=== PATIENT | female | born 1955 | race Caucasian/White ===

== ENCOUNTER 2017-02-15 08:43 | Emergency (ER) | payer MEDICARE, BC, MEDICAID ==
[2017-02-15 08:55] VITALS: BP 136/71
--- NOTE | 2017-02-15 09:00 | ED Physician Documentation ---
PD HPI HEENT - Stated complaint Stated Complaint: LEFT EYE SWOLLEN - Chief complaint Chief Complaint: Heent - History obtained from History obtained from: Patient - History of Present Illness Timing - onset: Last night (some itching and swelling on forehead and it is increased today, with left eyelid swelling as well. No vision change. no fever.) Timing - details: Abrupt onset Location: Other (forehead and left eyelids.) Associated symptoms: Facial swelling (which is itchy.). No: Fever, Congestion, Rhinorrhea, Swollen nodes Similar symptoms before: Has not had sx before Recently seen: Not recently seen Review of Systems Constitutional: denies: Fever, Chills Eyes: denies: Loss of vision, Decreased vision, Photophobia Nose: denies: Rhinorrhea / runny nose, Congestion Throat: denies: Sore throat Respiratory: denies: Cough PD PAST MEDICAL HISTORY - Past Medical History Endocrine/Autoimmune: None HEENT: None - Present Medications Home Medications: Ambulatory Orders Medication Instructions Recorded Confirmed Dexamethasone [Decadron] 4 mg PO DAILY #5 tablet 02/15/17 - Allergies Allergies/Adverse Reactions: Allergies Allergy/AdvReac Type Severity Reaction Status Date / Time No Known Drug Allergies Allergy Verified 02/15/17 08:55 PD ED PE NORMAL - Vitals Vital signs reviewed: Yes - General General: Alert and oriented X 3, No acute distress, Well developed/nourished - HEENT HEENT: PERRL, EOMI, Ears normal, Moist mucous membranes, Pharynx benign, Other ( mid forehead and left upper/lower eyelids with swelling, faint red, itchy without skin sores/vesicles. ) - Neck Neck: Supple, no meningeal sign, No adenopathy - Cardiac Cardiac: RRR, No murmur - Respiratory Respiratory: Clear bilaterally - Derm Derm: Normal color, Warm and dry Results - Vitals Vitals: Oxygen O2 Source Room air PD MEDICAL DECISION MAKING - ED course Complexity details: considered differential (looks like local reaction. Does not have cellulitic look. No pain with ROM of the eye and has normal vision, so not having pressure in orbital area. ), d/w patient Departure - Departure Disposition: 01 Home, Self Care Clinical Impression: Allergic reaction Qualifiers: Encounter type: initial encounter Qualified Code(s): T78.40XA - Allergy, unspecified, initial encounter Condition: Stable Record reviewed to determine appropriate education?: Yes Instructions: ED Allergic Reaction Local Other Prescriptions: Dexamethasone [Decadron] 4 mg PO DAILY #5 tablet Comments: This looks to be allergic reaction and not an infection. Use Benadryl every 6 hours as needed for itchiness. Cool towels to the area. Steroid orally and/or topically until improved. Orally can be once daily if needed to continue it. Topically would be twice daily. Recheck if not improved over the next day or 2. Recheck if you have other symptoms develop such as oral swelling, trouble breathing, fever, nausea vomiting, other concerns. I wrote a prescription for some oral steroids to use only if this persists beyond a day or so. Discharge Date/Time: 02/15/17 09:33
[2017-02-15] MEDS ORDERED: DEXAMETHASONE 10 MG/ML VIAL PO STA (09:22)
[2017-02-15] MEDS ORDERED: DEXAMETHASONE 10 MG/ML VIAL ONE (09:33)
[2017-02-15] MEDS ORDERED: CHERRY SYRUP 10 ML UDC PO ONE (09:34)
== END 2017-02-15 09:33 | disposition home or self-care (01) ==
LOC: ED 08:43
DX: T78.40XA Allergy, unspecified, initial encounter (principal); X58.XXXA Exposure to other specified factors, initial encounter
CPT/HCPCS: 99283; A9270

== ENCOUNTER 2017-11-16 11:44 | Outpatient (CLI) | payer MEDICARE, MEDICAID ==
--- NOTE | 2017-11-16 12:29 | XRAY Report ---
Procedure Date: 11/16/2017 Accession Number: [id number] / [id number] Procedure: XRS - Chest 2 View X-Ray CPT Code: 62305 FULL RESULT: EXAM: CHEST RADIOGRAPHY EXAM DATE: 11/16/2017 11:57 AM. CLINICAL HISTORY: Cough. COMPARISON: None. TECHNIQUE: 2 views. FINDINGS: Lungs/Pleura: No focal opacities evident. No pleural effusion. No pneumothorax. Normal volumes. Mediastinum: Heart and mediastinal contours are unremarkable. Other: None. IMPRESSION: Normal 2-view chest radiography. RADIA
== END 2017-11-16 11:45 | disposition home or self-care (01) ==
LOC: DI.S 11:44
PROVIDERS: ATTEND Nurse Practitioner Family
DX: R05 Cough (principal)
CPT/HCPCS: 71046

== ENCOUNTER 2017-12-27 11:13 | Emergency (ER) | payer MEDICARE, MEDICAID ==
--- NOTE | 2017-12-27 12:00 | ED Physician Documentation ---
PD HPI ANIMAL BITE - Stated complaint Stated Complaint: DOG BITE L HAND - Chief complaint Chief Complaint: Wound - History obtained from History obtained from: Patient - History of Present Illness Location of injury(ies): Left hand (thumb) Details of the event: Dog, Bite, Well appearing, Provoked (She is walking her dog at a community setting and another dog came up in the 2 started fighting over some food. The patient tried to break it up and got bit in the thumb by the other dog.), Animal control notified Timing - onset: Today Timing - details: Abrupt onset, Still present Associated symptoms: No: Weakness, Numbness Similar symptoms before: Has not had sx before Recently seen: Not recently seen Review of Systems Constitutional: denies: Fever, Chills Neurologic: denies: Focal weakness, Numbness PD PAST MEDICAL HISTORY - Past Medical History Past Medical History: No Endocrine/Autoimmune: None HEENT: None - Past Surgical History Past Surgical History: No - Present Medications Home Medications: Ambulatory Orders Medication Instructions Recorded Confirmed Dexamethasone [Decadron] 4 mg PO DAILY #5 tablet 02/15/17 Amox/Clav 875/125 [Augmentin] 1 each PO BID #10 tablet 12/27/17 - Allergies Allergies/Adverse Reactions: Allergies Allergy/AdvReac Type Severity Reaction Status Date / Time No Known Drug Allergies Allergy Verified 02/15/17 08:55 - Social History Does the pt smoke?: No Smoking Status: Never smoker Does the pt drink ETOH?: No Does the pt have substance abuse?: No - Immunizations Immunizations are current?: Yes PD ED PE NORMAL - Vitals Vital signs reviewed: Yes - General General: Alert and oriented X 3, No acute distress, Well developed/nourished - Derm Derm: Normal color, Warm and dry - Extremities Extremities: Other (left thumb with 2 puncture wounds 3-4 mm each, without bleeding. No FB seen. Good ROM of the thumb. One of the lacs is at palmar tip. second one is proximal base ulnar side. Normal ROM. ) - Neuro Neuro: Alert and oriented X 3, No motor deficit, No sensory deficit, Normal speech Results - Vitals Vitals: Vital Signs - 24 hr 12/27/17 11:40 Temperature 36.5 C Heart Rate 115 H Respiratory 20 Rate Blood Pressure 157/110 H O2 Saturation 97 Oxygen O2 Source Room air PD MEDICAL DECISION MAKING - ED course Complexity details: considered differential (wounds are small and no FB nor nerve/tendon injury. Can be closed with steri strips. ), d/w patient - Sepsis Event Vital Signs: Vital Signs - 24 hr 12/27/17 11:40 Temperature 36.5 C Heart Rate 115 H Respiratory 20 Rate Blood Pressure 157/110 H O2 Saturation 97 Oxygen O2 Source Room air Departure - Departure Disposition: 01 Home, Self Care Clinical Impression: Dog bite of left thumb Qualifiers: Encounter type: initial encounter Qualified Code(s): S61.052A - Open bite of left thumb without damage to nail, initial encounter; W54.0XXA - Bitten by dog, initial encounter Condition: Stable Record reviewed to determine appropriate education?: Yes Instructions: ED Bite Animal General Prescriptions: Amox/Clav 875/125 [Augmentin] 1 each PO BID #10 tablet Comments: Use the Steri-Strips to keep the wound closed and he will a little sooner. Animal bites are little more prone to infection so common treatment would be to go some antibiotics for a few days to reduce that risk. Tylenol or ibuprofen if needed for pains. Recheck if signs of infection. He also received a tetanus booster today which will be good for 10 more years.
[2017-12-27] MEDS ORDERED: TETANUS/DIPHTHERIA/PERTUSSIS 0.5 ML SYRINGE IM ONE (12:08)
[2017-12-27] MEDS ORDERED: AMOX/CLAV 875 MG/125 MG TABLET PO STA (12:08)
[2017-12-27 12:28] VITALS: BP 148/93
== END 2017-12-27 12:26 | disposition home or self-care (01) ==
LOC: ED 11:13
DX: S61.052A Open bite of left thumb without damage to nail, initial encounter (principal); W54.0XXA Bitten by dog, initial encounter; Y93.K1 Activity, walking an animal; Y92.830 Public park as the place of occurrence of the external cause
CPT/HCPCS: 90471; 90715; 99282; 99283; A9270

== ENCOUNTER 2018-02-06 05:30 | Emergency (ER) | payer MEDICARE, MEDICAID ==
--- NOTE | 2018-02-06 06:13 | ED Physician Documentation ---
PD HPI URI - Stated complaint Stated Complaint: COUGH - Chief complaint Chief Complaint: Resp - History obtained from History obtained from: Patient - History of Present Illness Timing - onset: How many days ago (2-3 days) Associated symptoms: Chills, Sweats, Nasal congestion, Sore throat, Dry cough. No: Ear pain, Chest pain, Dyspnea, Bilateral edema, Unilateral edema Similar symptoms before: Has not had sx before Recently seen: Not recently seen - Additional information Additional information: c/o 2-3 days of cough, nonproductive despite chest congestion. also sinus congestion, chills/sweats (unknown if fever; hasn't been taking temperature at home). cough has become increasingly frequent, interfering with sleep Review of Systems Constitutional: reports: Chills, Sweats Ears: denies: Ear pain Nose: reports: Congestion Throat: reports: Sore throat Cardiac: denies: Chest pain / pressure, Palpitations, Pedal edema Respiratory: reports: Cough. denies: Dyspnea, Hemoptysis, Wheezing PD PAST MEDICAL HISTORY - Past Medical History Endocrine/Autoimmune: None HEENT: None - Past Surgical History Past Surgical History: No - Present Medications Home Medications: Ambulatory Orders Medication Instructions Recorded Confirmed Albuterol Sulfate [Proventil Hfa 1 - 2 puffs INH Q4H PRN #1 inhaler 02/06/18 Inhaler] Benzonatate 200 mg PO Q8HR PRN #20 capsule 02/06/18 guaiFENesin/CODEINE [Robitussin AC] 5 ml PO Q6H PRN #90 udc 02/06/18 predniSONE [Prednisone] 40 mg PO DAILY #8 tablet 02/06/18 - Allergies Allergies/Adverse Reactions: Allergies Allergy/AdvReac Type Severity Reaction Status Date / Time No Known Drug Allergies Allergy Verified 02/15/17 08:55 - Social History Does the pt smoke?: No Smoking Status: Never smoker Does the pt drink ETOH?: No Does the pt have substance abuse?: No - Immunizations Immunizations are current?: Yes PD ED PE NORMAL - Vitals Vital signs reviewed: Yes - General General: Alert and oriented X 3, Well developed/nourished, Other (frequent coughing during H+P) - HEENT HEENT: Moist mucous membranes, Pharynx benign - Neck Neck: Supple, no meningeal sign - Cardiac Cardiac: RRR, No murmur - Respiratory Respiratory: No respiratory distress, Other (bilateral course expiratory breath sounds) Results - Vitals Vitals: Oxygen O2 Source Room air - Rads (name of study) chest xray Radiology: Prelim report reviewed, See rad report PD MEDICAL DECISION MAKING - ED course Complexity details: reviewed results, re-evaluated patient, considered differential, d/w patient ED course: on reevaluation, patient reports improvement. there is marked improvement in coughing. lungs have improved aeration with minimal residual bilateral course expiratory breath sounds Departure - Departure Disposition: 01 Home, Self Care Clinical Impression: Bronchitis, acute, with bronchospasm Condition: Good Instructions: ED Bronchitis Asthmatic Prescriptions: Benzonatate 200 mg PO Q8HR PRN #20 capsule PRN Reason: Cough Albuterol Sulfate [Proventil Hfa Inhaler] 1 - 2 puffs INH Q4H PRN #1 inhaler PRN Reason: Shortness Of Air/Wheezing guaiFENesin/CODEINE [Robitussin AC] 5 ml PO Q6H PRN #90 udc PRN Reason: Cough predniSONE [Prednisone] 40 mg PO DAILY #8 tablet Forms: Activity restrictions Discharge Date/Time: 02/06/18 08:02
--- NOTE | 2018-02-06 06:15 | XRAY Report ---
Reason: cough Procedure Date: 02/06/2018 Accession Number: [id number] / [id number] Procedure: XR - Chest 2 View X-Ray CPT Code: 25783 FULL RESULT: EXAM: CHEST RADIOGRAPHY EXAM DATE: 02/06/2018 06:01 AM. CLINICAL HISTORY: Cough. COMPARISON: CHEST 2 VIEW 11/16/2017 12:01 PM. TECHNIQUE: 2 views. FINDINGS: Lungs/Pleura: No focal opacities evident. No pleural effusion. No pneumothorax. Normal volumes. Mediastinum: Heart and mediastinal contours are unremarkable. Other: None. IMPRESSION: Normal 2-view chest radiography. RAD[facility]
[2018-02-06] MEDS ORDERED: IPRATROPIUM/ALBUTEROL 3 ML NEB INH STA (06:36)
[2018-02-06] MEDS ORDERED: BENZONATATE 100 MG CAPSULE PO STA (06:36)
[2018-02-06 07:28] VITALS: BP 173/112
== END 2018-02-06 08:02 | disposition home or self-care (01) ==
LOC: ED 05:30
DX: J20.9 Acute bronchitis, unspecified (principal)
CPT/HCPCS: 71046; 94640; 99283; A9270

== ENCOUNTER 2018-04-04 04:00 | Emergency (ER) | payer MEDICARE, MEDICAID ==
[2018-04-04 04:08] VITALS: BP 155/83
--- NOTE | 2018-04-04 04:23 | ED Physician Documentation ---
PD HPI SKIN - Stated complaint Stated Complaint: POSS SPIDER BITE - Chief complaint Chief Complaint: Wound - History obtained from History obtained from: Patient - History of Present Illness Timing - onset: How many days ago (2-3) Timing - duration: Days (2-3) Timing - details: Gradual onset Location: Chest, Back (right scapular back area wrapping around to lateral breast. Pain and burning without noted injury. Has small red spot developing today lateral chest.) Quality / character: Itchy, Painful, Burning. No: Discolored, Swelling Associated symptoms: No: Fever, Myalgias, N/V/D Similar symptoms before: Has not had sx before Recently seen: Not recently seen Review of Systems Constitutional: denies: Fever, Chills, Myalgias Nose: denies: Rhinorrhea / runny nose, Congestion Throat: denies: Sore throat Respiratory: denies: Cough GI: denies: Abdominal Pain, Nausea, Vomiting, Diarrhea Neurologic: denies: Focal weakness, Numbness PD PAST MEDICAL HISTORY - Past Medical History Past Medical History: Yes Respiratory: None Neuro: None Endocrine/Autoimmune: None HEENT: None Other Past Medical History: Lymes disease - Past Surgical History Past Surgical History: No - Present Medications Home Medications: Ambulatory Orders Medication Instructions Recorded Confirmed Acyclovir 400 mg PO 5XD #30 tablet 04/04/18 Amitriptyline [Elavil] 25 mg PO HS #30 tablet 04/04/18 Dexamethasone [Decadron] 4 mg PO DAILY #5 tablet 04/04/18 Hydrocodone/Acetaminophen [[place] 1 each PO Q6H PRN #15 tablet 04/04/18 5-325 Tablet] Lidocaine Patch 5% [Lidoderm Patch] 1 patch TOP DAILY PRN #10 patch 04/04/18 - Allergies Allergies/Adverse Reactions: Allergies Allergy/AdvReac Type Severity Reaction Status Date / Time No Known Drug Allergies Allergy Verified 04/04/18 04:08 - Social History Does the pt smoke?: No Smoking Status: Never smoker Does the pt drink ETOH?: No Does the pt have substance abuse?: No - Immunizations Immunizations are current?: Yes - POLST Patient has POLST: No PD ED PE NORMAL - Vitals Vital signs reviewed: Yes - General General: Alert and oriented X 3, No acute distress, Well developed/nourished - HEENT HEENT: Pharynx benign - Neck Neck: Supple, no meningeal sign, No adenopathy - Cardiac Cardiac: RRR, No murmur - Respiratory Respiratory: Clear bilaterally - Abdomen Abdomen: Soft, Non tender - Back Back: No spinal TTP, Other (tender to touch and light touch right lateral scapular area at level of T4-5 and around chest to lateral breast area. One single small red bump that is tender in anterior axillary line. She is not tender just above nor below that swatch.) - Derm Derm: Warm and dry Results - Vitals Vitals: Vital Signs - 24 hr 04/04/18 04/04/18 04:06 05:09 Temperature 36.4 C L Heart Rate 107 H 101 H Respiratory 19 18 Rate Blood Pressure 155/83 H O2 Saturation 98 99 Oxygen O2 Source Room air PD MEDICAL DECISION MAKING - ED course Complexity details: considered differential (has pain and skin tenderness in dermatomal wrap-around distribution right back/lateral chest, with single red bump just starting this evening. Seems c/w shingles. ), d/w patient Departure - Departure Disposition: 01 Home, Self Care Clinical Impression: Acute chest wall pain Shingles outbreak Qualifiers: Herpes zoster complications: without complications Qualified Code(s): B02.9 - Zoster without complications Condition: Stable Record reviewed to determine appropriate education?: Yes Instructions: ED Shingles Prescriptions: Acyclovir 400 mg PO 5XD #30 tablet Amitriptyline [Elavil] 25 mg PO HS #30 tablet Dexamethasone [Decadron] 4 mg PO DAILY #5 tablet Hydrocodone/Acetaminophen [[place] 5-325 Tablet] 1 each PO Q6H PRN #15 tablet PRN Reason: Pain Lidocaine Patch 5% [Lidoderm Patch] 1 patch TOP DAILY PRN #10 patch PRN Reason: pain Comments: This sounds like a developing shingles outbreak. Forward it would treat with medication to decrease the amount of virus (antiviral acyclovir), and also to treat the nerve inflammation and irritation (Decadron steroid and amitriptyline at night). For the symptoms you can use lidocaine patches topically. Naproxen or ibuprofen 2-3 times a day and add Tylenol or hydrocodone if needed for pain. Discharge Date/Time: 04/04/18 05:10
[2018-04-04] MEDS ORDERED: HYDROcod/ACET 5/325 Prepack 4 PO STA (04:39)
[2018-04-04] MEDS ORDERED: ACYCLOVIR 200 MG CAPSULE PO STA (04:39)
[2018-04-04] MEDS ORDERED: DEXAMETHASONE 10 MG/ML VIAL PO STA (04:39)
[2018-04-04] MEDS ORDERED: LIDOCAINE PATCH 5% TOP STA (04:39)
== END 2018-04-04 05:10 | disposition home or self-care (01) ==
LOC: ED 04:00
DX: B02.9 Zoster without complications (principal); R07.89 Other chest pain
CPT/HCPCS: 99283; A9270

== ENCOUNTER 2018-11-10 07:45 | Outpatient (CLI) | payer MEDICARE, MEDICAID ==
--- NOTE | 2018-11-11 10:47 | XRAY Report ---
Reason: MYALGIAS, M79.120,R53.83,R06.09 Procedure Date: 11/10/2018 Accession Number: [id number] / [id number] Procedure: XRS - Chest 2 View X-Ray CPT Code: 61270 FULL RESULT: EXAM: CHEST RADIOGRAPHY EXAM DATE: 11/10/2018 07:57 AM. CLINICAL HISTORY: MYALGIAS, M79. 120,R53. 83,R06. 09. COMPARISON: CHEST 2 VIEW 02/06/2018 5:49 AM. TECHNIQUE: 2 views. FINDINGS: Lungs/Pleura: No focal opacities evident. No pleural effusion. No pneumothorax. Normal volumes. Mediastinum: Heart and mediastinal contours are unremarkable. Other: Mild loss of disk space height within mid thoracic spine. IMPRESSION: No consolidation. RADIA
== END 2018-11-10 07:46 | disposition home or self-care (01) ==
LOC: DI.S 07:45
PROVIDERS: ATTEND Registered Nurse
DX: R06.00 Dyspnea, unspecified (principal); M79.10 Myalgia, unspecified site; R53.83 Other fatigue; M25.50 Pain in unspecified joint
CPT/HCPCS: 36415; 71046; 81599; 82550; 85651; 86200

== ENCOUNTER 2018-12-17 06:38 | Emergency (ER) | payer MEDICAID, MEDICARE ==
[2018-12-17 06:48] VITALS: BP 170/140
[2018-12-17] MEDS ORDERED: DEXAMETHASONE 10 MG/ML VIAL PO STA (07:11)
[2018-12-17] MEDS ORDERED: CHERRY SYRUP 10 ML UDC PO ONE (07:11)
[2018-12-17] MEDS ORDERED: KETOROLAC 60 MG/2 ML VIAL IM STA (07:11)
--- NOTE | 2018-12-17 07:15 | ED Physician Documentation ---
PD HPI BACK PAIN - Stated complaint Stated Complaint: BACK PX - Chief complaint Chief Complaint: Back Pain - History obtained from History obtained from: Patient - History of Present Illness Timing - onset: How many days ago (4) Timing - details: Still present Location: Lower, Left Quality: Pain, Similar to prior episodes Associated symptoms: No: Fever, Weakness, Numbness, Incontinent of urine Worsened by: Movement, Lifting, Twisting, Palpation Similar symptoms before: No diagnosis - Treatment prior to arrival Treatment prior to arrival: Aleve, ice pack, and CBD oil without relief. - Additional information Additional information: The patient is a 63-year-old female who presents with left lower back pain that started 4 days ago and continues to be quite severe. She denies any specific inciting event. The pain radiates down her left leg to her knee. She denies numbness, weakness, fever, or urinary incontinence. She has used ice pack, Aleve, and CBD oil without leaf. She has a history of similar symptoms intermittently over the past 15 years since suffering a pelvic fracture. However it has been several years since her last episode. Review of Systems Constitutional: denies: Fever Nose: denies: Congestion Throat: denies: Sore throat Cardiac: denies: Chest pain / pressure Respiratory: denies: Dyspnea, Cough GI: denies: Abdominal Pain, Nausea, Vomiting : denies: Dysuria, Incontinent Skin: denies: Rash Musculoskeletal: reports: Back pain. 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 : None HEENT: None Psych: None Musculoskeletal: Chronic back pain Derm: None - Past Surgical History Past Surgical History: No - Present Medications Home Medications: Ambulatory Orders Medication Instructions Recorded Confirmed Acyclovir 400 mg PO 5XD #30 tablet 04/04/18 Amitriptyline [Elavil] 25 mg PO HS #30 tablet 04/04/18 Hydrocodone/Acetaminophen [[place] 1 each PO Q6H PRN #15 tablet 04/04/18 5-325 Tablet] Lidocaine Patch 5% [Lidoderm Patch] 1 patch TOP DAILY PRN #10 patch 04/04/18 dexAMETHasone [Decadron] 4 mg PO DAILY #5 tablet 04/04/18 Cyclobenzaprine [Flexeril] 10 mg PO TID PRN #20 tablet 12/17/18 Hydrocodone/Acetaminophen 1 - 2 each PO Q6H PRN #14 tablet 12/17/18 [Hydrocodon-Acetaminophen 5-325] Lidocaine Patch 5% [Lidoderm Patch] 1 patch TOP DAILY PRN #10 patch 12/17/18 - Allergies Allergies/Adverse Reactions: Allergies Allergy/AdvReac Type Severity Reaction Status Date / Time No Known Drug Allergies Allergy Verified 12/17/18 06:47 - Social History Does the pt smoke?: No Smoking Status: Never smoker Does the pt drink ETOH?: No Does the pt have substance abuse?: No - Immunizations Immunizations are current?: Yes - POLST Patient has POLST: No PD ED PE NORMAL - Vitals Vital signs reviewed: Yes (Hypertensive) - General General: Alert and oriented X 3, Well developed/nourished, Other (Appears miserable, standing, leaning against the counter rubbing her back.) - HEENT HEENT: Atraumatic - Neck Neck: Supple, no meningeal sign, No adenopathy - Cardiac Cardiac: RRR - Respiratory Respiratory: No respiratory distress, Clear bilaterally - Abdomen Abdomen: Soft, Non tender - Back Back: No CVA TTP, No spinal TTP, Other (Tenderness to palpation in the left sacroiliac region, with muscle spasm palpated. There is no tenderness to p alpation along the spinous processes.) - Derm Derm: No rash - Extremities Extremities: No edema, No calf tenderness / cord, Other (Straight leg test is positive on the left at 30 degrees elevation; negative on the right.) - Neuro Neuro: Alert and oriented X 3, No motor deficit, No sensory deficit, Other (Deep tendon reflexes are 2+ and equal bilaterally at the patellar and Achilles tendons.) Results - Vitals Vitals: Vital Signs - 24 hr 12/17/18 06:45 Temperature 36.4 C L Heart Rate 116 H Respiratory 19 Rate Blood Pressure 170/140 H O2 Saturation 100 Oxygen O2 Source Room air PD MEDICAL DECISION MAKING - ED course Complexity details: reviewed old records, re-evaluated patient, considered differential, d/w patient ED course: The patient's lower back pain is most consistent with left sided sciatica. The clinical presentation does not suggest epidural abscess, spinal stenosis, or cauda equina syndrome. Treatment in the emergency department included administration of Toradol 60 mg IM and Dexamethasone 10 mg orally. On reexamination she demonstrates slight improvement. The patient is being discharged with prescriptions for lidoderm patches, flexeril, and vicodin, 14 tablets. I discussed with her the expected course of illness, symptomatic treatment and outpatient follow-up, as well as potentially worrisome signs or symptoms that should prompt reevaluation in the emergency department. Departure - Departure Disposition: 01 Home, Self Care Clinical Impression: Sciatica Qualifiers: Laterality: left Qualified Code(s): M54.32 - Sciatica, left side Condition: Stable Instructions: ED Sciatica Follow-Up: [facility] [Provider Group] Prescriptions: Cyclobenzaprine [Flexeril] 10 mg PO TID PRN #20 tablet PRN Reason: Spasms Hydrocodone/Acetaminophen [Hydrocodon-Acetaminophen 5-325] 1 - 2 each PO Q6H PRN #14 tablet PRN Reason: pain Lidocaine Patch 5% [Lidoderm Patch] 1 patch TOP DAILY PRN #10 patch PRN Reason: pain Comments: Apply ice pack to your lower back intermittently for the next 3 or 4 days. You can use ibuprofen or Aleve for anti-inflammatory effect. You can use as Flexeril prescribed if needed for pain or muscle spasms. You can use Lidoderm patch daily as prescribed. You can also use Vicodin as prescribed if needed for pain. Let pain be your guide to activity level. Follow up with your primary physician within 1-2 weeks. Call to schedule an appointment. Return to the emergency department if you develop increasing pain, numbness or weakness, urinary incontinence, or otherwise worsening symptoms. Forms: Activity restrictions Discharge Date/Time: 12/17/18 08:11
== END 2018-12-17 08:11 | disposition home or self-care (01) ==
LOC: ED 06:38
DX: M54.42 Lumbago with sciatica, left side (principal)
CPT/HCPCS: 99283; 99284; A9270

== ENCOUNTER 2019-01-19 14:08 | Outpatient (CLI) | payer MEDICARE ==
--- NOTE | 2019-01-19 14:49 | XRAY Report ---
Reason: LOW BACK PAIN Procedure Date: 01/19/2019 Accession Number: [id number] / [id number] Procedure: XR - Lumbar Spine Complete CPT Code: FULL RESULT: EXAM: LUMBOSACRAL SPINE RADIOGRAPHY EXAM DATE: 01/19/2019 02:27 PM. CLINICAL HISTORY: Low back pain. COMPARISONS: None. TECHNIQUE: 3 views. FINDINGS: Alignment: Mild 8-degree levoconvex lumbar scoliosis centered about L3-L4. 3 mm of retrolisthesis of L1 on L2. Neuroforamina are suboptimally visualized on oblique views. Bones: Five [id number] lumbar vertebral bodies are present. No fractures or bone lesions. Disks: There is mild multilevel loss of disk space height, which is most pronounced at L5-S1 where there is endplate sclerosis. Facets: Multilevel facet arthropathy is most pronounced at L5 where it is mild to moderate. Sacroiliac Joints: Unremarkable. Soft Tissues: Normal. The visualized bowel gas pattern is normal. IMPRESSION: Degenerative changes including scoliosis as described. RADIA
== END 2019-01-19 14:09 | disposition home or self-care (01) ==
LOC: DI 14:08
PROVIDERS: ATTEND Family Medicine
DX: M51.36 Other intervertebral disc degeneration, lumbar region (principal); M51.37 Other intervertebral disc degeneration, lumbosacral region; M47.816 Spondylosis without myelopathy or radiculopathy, lumbar region; M41.9 Scoliosis, unspecified
CPT/HCPCS: 72110

== ENCOUNTER 2019-04-25 08:51 | Outpatient (CLI) | payer MEDICARE ==
--- NOTE | 2019-04-25 11:36 | Mammography Report ---
Reason: SCREENING MAMMO Procedure Date: 04/25/2019 Accession Number: [id number] / [id number] Procedure: MGS - Screening Mammo Dig Bilat CPT Code: Final Report FULL RESULT: EXAM: Screening Mammo Dig Bilat DATE: 04/25/2019 9:29 AM CLINICAL HISTORY: Nulliparous patient, routine screening TECHNIQUE: (B) - Bilateral CC and MLO views were obtained. COMPARISON: 06/11/2009 PARENCHYMAL PATTERN: (A) - The breasts demonstrate scattered fibroglandular densities bilaterally. FINDINGS: No significant interval change. There are no suspicious masses, calcifications, or areas of distortion. IMPRESSION: Negative examination. BI-RADS category 1. RECOMMENDATION: (ANNUAL) - Recommend routine annual screening mammography. BI-RADS CATEGORY: (1) - Negative. STANDARD QUALIFYING STATEMENTS: 1. This examination was not reviewed with the aid of Computer-Aided Detection (CAD). 2. A negative or benign imaging report should not preclude biopsy if clinically suspicious findings are present. 3. Dense breasts may obscure an underlying neoplasm. 4. This examination was reviewed without the aid of 3D breast imaging (tomosynthesis).
== END 2019-04-25 08:52 | disposition home or self-care (01) ==
LOC: DI.S 08:51
DX: Z12.31 Encounter for screening mammogram for malignant neoplasm of breast (principal)
CPT/HCPCS: 77067

== ENCOUNTER 2020-08-31 08:00 | Outpatient (CLI) | payer MEDICARE | END 2020-08-31 23:59 | disposition home or self-care (01) | LOC: LAB.S 08:00 | PROVIDERS: ATTEND Emergency Medicine | DX: R05 Cough (principal); Z20.822 Contact with and (suspected) exposure to COVID-19 ==

== ENCOUNTER 2021-06-21 08:00 | Outpatient (CLI) | payer MEDICARE, OTHER ==
--- NOTE | 2021-06-21 12:59 | XRAY Report ---
PROCEDURE: Forearm RT INDICATIONS: ELBOW PAIN RIGHT/FALL TECHNIQUE: 2 views of the forearm were acquired. COMPARISON: None. FINDINGS: BONES: No acute, displaced fracture or dislocation. Osteoarthrosis of the first carpometacarpal artic ulation, partially imaged. SOFT TISSUES: No focal abnormality. IMPRESSION: 1.No acute osseous abnormality. Reviewed by: Javad Caballero MD on 06/21/2021 12:57 PM PDT Approved by: Javad Caballero MD on 06/21/2021 12:57 PM PDT Station ID: [id number]
--- NOTE | 2021-06-21 13:03 | XRAY Report ---
PROCEDURE: Pelvis 3 View INDICATIONS: PELVIC PAIN/FALL TECHNIQUE: 3 views of the pelvis COMPARISON: None. FINDINGS: BONES/JOINTS: No acute, displaced fracture. Mild right and moderate left arthrosis of the hip joints with joint space loss, fibrocystic change, and osteophytosis. No widening of the pubic symphysis. The sacroiliac joints are symmetric. The femoral heads are normal ly seated within the acetabulum. SOFT TISSUES: No focal abnormality. IMPRESSION: 1.Bilateral hip degeneration as detailed above. Reviewed by: Javad Caballero MD on 06/21/2021 1:01 PM PDT Approved by: Javad Caballero MD on 06/21/2021 1:01 PM PDT Station ID: [id number]
--- NOTE | 2021-06-21 16:48 | XRAY Report ---
PROCEDURE: Humerus RT INDICATIONS: RIGHT SHOULDER PAIN/FALL TECHNIQUE: 3 views of the humerus were acquired. COMPARISON: None FINDINGS: Bones: No fractures or dislocations. No suspicious bony lesions. Moderate to severe acromioclavicu lar degenerative narrowing. Soft tissues: No suspicious soft tissue calcifications. IMPRESSION: No visualized acute fracture or dislocation. However, occult injury cannot be excluded. Recommend sam rt interval imaging follow-up in 7-10 days as clinically indicated for additional evaluation. Reviewed by: Shira Engel MD on 06/21/2021 4:47 PM PDT Approved by: Shira Engel MD on 06/21/2021 4:47 PM PDT Station ID: [id number]
--- NOTE | 2021-06-21 16:49 | XRAY Report ---
PROCEDURE: Hand 3 View RT INDICATIONS: RIGHT HAND PAIN/FALL TECHNIQUE: 3 views of the hand(s) acquired. COMPARISON: None FINDINGS: Bones: No fractures or dislocations. No suspicious bony lesions. Multilevel IP degenerative narrow ing is present. Prominent first distal metacarpal osteophyte. Severe first MCP P degenerative narrowi ng. Soft tissues: No suspicious soft tissue calcifications. IMPRESSION: No visualized acute fracture or dislocation. However, occult injury cannot be excluded. Recommend sam rt interval imaging follow-up in 7-10 days as clinically indicated for additional evaluation. Reviewed by: Shira Engel MD on 06/21/2021 4:48 PM PDT Approved by: Shira Engel MD on 06/21/2021 4:48 PM PDT Station ID: [id number]
== END 2021-06-21 23:59 ==
LOC: DI.S 08:00
PROVIDERS: ATTEND Physician Assistant
DX: M79.641 Pain in right hand (principal); M25.521 Pain in right elbow; M25.511 Pain in right shoulder; M16.0 Bilateral primary osteoarthritis of hip

== ENCOUNTER 2021-10-25 11:30 | Emergency (ER) | payer MEDICARE ==
[2021-10-25 11:43] VITALS: BP 141/74
--- NOTE | 2021-10-25 12:23 | XRAY Report ---
PROCEDURE: Knee 4 View RT INDICATIONS: Trauma TECHNIQUE: 4 views of the right knee(s) were acquired. COMPARISON: None. FINDINGS: Bones: No visible fractures or dislocations. No suspicious bony lesions. Mild enthesopathy at the q uadriceps tendon insertion. Soft tissues: Moderate-sized suprapatellar joint effusion. No suspicious soft tissue calcifications. IMPRESSION: 1. Moderate size joint effusion without visible fracture. This may indicate internal derangement. 2. Consider MR if no improvement with conservative management. Reviewed by: Cecilia Taylor MD on 10/25/2021 12:21 PM PDT Approved by: Cecilia Taylor MD on 10/25/2021 12:21 PM PDT Station ID: [id number]
--- NOTE | 2021-10-25 13:24 | ED Physician Documentation ---
PD HPI LOWER EXT INJURY - Stated complaint Stated Complaint: R KNEE INJURY - Chief complaint Chief Complaint: Ext Problem - History obtained from History obtained from: Patient - Additional information Additional information: Her dog was recently injured and so there was 3 days where she had to carry her dog up and down stairs. Her dog is now better. But without specific other injury she developed severe right knee pain and swelling. There was no fall or twisting injury. Pain is severe despite Tylenol and ibuprofen. 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 HEENT: None Psych: None Musculoskeletal: Chronic back pain Derm: None - Past Surgical History Past Surgical History: No - Present Medications Home Medications: Ambulatory Orders Medication Instructions Recorded Confirmed Acyclovir 400 mg PO 5XD #30 tablet 04/04/18 Amitriptyline [Elavil] 25 mg PO HS #30 tablet 04/04/18 Hydrocodone/Acetaminophen [[place] 1 each PO Q6H PRN #15 tablet 04/04/18 5-325 Tablet] Lidocaine Patch 5% [Lidoderm Patch] 1 patch TOP DAILY PRN #10 patch 04/04/18 dexAMETHasone [Decadron] 4 mg PO DAILY #5 tablet 04/04/18 Cyclobenzaprine [Flexeril] 10 mg PO TID PRN #20 tablet 12/17/18 Hydrocodone/Acetaminophen 1 - 2 each PO Q6H PRN #14 tablet 12/17/18 [Hydrocodon-Acetaminophen 5-325] Lidocaine Patch 5% [Lidoderm Patch] 1 patch TOP DAILY PRN #10 patch 12/17/18 HYDROcod/ACETAM 5/325 [[place] 5/325] 1 - 2 tab PO Q6H PRN #20 tablet 10/25/21 - Allergies Allergies/Adverse Reactions: Allergies Allergy/AdvReac Type Severity Reaction Status Date / Time No Known Drug Allergies Allergy Verified 10/25/21 11:42 - Social History Does the pt smoke?: No Smoking Status: Never smoker Does the pt drink ETOH?: No Does the pt have substance abuse?: No - Immunizations Immunizations are current?: Yes - POLST Patient has POLST: No PD ED PE NORMAL - Vitals Vital signs reviewed: Yes - General General: Alert and oriented X 3, No acute distress - Extremities Extremities: Other (There is a large effusion of the right knee, no warmth or redness though. She has pain with flexion, but extension is relatively painless.) - Neuro Neuro: Alert and oriented X 3, Normal speech Results - Vitals Vitals: Vital Signs - 24 hr 10/25/21 11:40 Temperature 36.7 C Heart Rate 85 Respiratory 16 Rate Blood Pressure 141/74 H O2 Saturation 96 Oxygen O2 Source Room air - Rads (name of study) Right knee x-ray demonstrates a large effusion without bony abnormality. Radiology: EMP read contemporaneously PD MEDICAL DECISION MAKING - ED course ED course: 66-year-old woman presents with a large overuse/atraumatic effusion of the right knee. No clinical evidence of infection. I offered and recommended arthrocentesis both diagnostic and therapeutic with instillation of a long- acting anesthetic which she declined being scared of needles and intends instead to follow-up with orthopedics with pain control. Departure - Departure Disposition: 01 Home, Self Care Clinical Impression: Knee effusion, right Condition: Good Record reviewed to determine appropriate education?: Yes Instructions: ED Effusion Knee Follow-Up: Orthopedic Care [Provider Group] Prescriptions: HYDROcod/ACETAM 5/325 [[place] 5/325] 1 - 2 tab PO Q6H PRN #20 tablet PRN Reason: Pain Comments: I sent your prescription electronically to the [facility] pharmacy here in [place] at the corner of [address] [address] and [address]. As discussed you should follow-up with the orthopedic surgeon, next available appointment for reevaluation and further treatment. Return for new or worsening symptoms. Call his office today though. He should still take ibuprofen along with the prescription pain killer, may be 600 mg every 6 hours. I am prescribing a short course of narcotic pain medication for you. These are potentially dangerous and addictive medications that should be used carefully. These medications may constipate you. Take an gxde-dhu-bzssbxs stool softener (docusate) twice daily with plenty of water while taking these medications. If you go 24 hours without a bowel movement, take soul-kpj-ijyacdx miralax, per package instructions. Do not drink or drive while taking these medications. If you received narcotic or sedating medications while in the emergency department, do not drive for 24 hours. Store this medication in a safe, secure place and out of reach of children. It is a violation of federal law to give or sell this medication to another person or to use in a manner other than prescribed. The ED will not refill narcotic prescriptions, including prescriptions lost or stolen. To dispose of unwanted medications: 1. [facility] at [address] in [place] has a medication drop box. They accept prescription medications (in pill form) Thursday through Thursday 9:00 a.m. to 5:00 p.m. 2. The [facility] [place] [employer] accepts prescription medications (in pill form only) for disposal year round. Call for more information. 3. Contact the [facility] for the next [facility] sponsored prescription drug collection event. , [phone], or [phone]; Note that many narcotic pain relievers also contain Tylenol/acetaminophen. Please ensure that your total dose of acetaminophen from all sources does not exceed 3 g (3000 mg) per day. Forms: Activity restrictions
== END 2021-10-25 13:38 | disposition home or self-care (01) ==
LOC: ED 11:30
DX: M25.461 Effusion, right knee (principal); X50.0XXA Overexertion from strenuous movement or load, initial encounter; Y93.89 Activity, other specified
CPT/HCPCS: 99283

== ENCOUNTER 2021-11-04 08:00 | Outpatient (CLI) | payer MEDICARE ==
--- NOTE | 2021-11-04 16:41 | XRAY Report ---
PROCEDURE: Knee 3 View RT INDICATIONS: KNEE PX TECHNIQUE: 3 views of the x-ray knee 10/25/2021 knee(s) were acquired. COMPARISON: None. FINDINGS: Bones: Several small ossifications are noted adjacent to the right medial tibial plateau, new compare d to prior exam. No suspicious bony lesions. There is bilateral mild to moderate medial and patellof emoral compartment narrowing. Soft tissues: Markedly decreased right effusion. No suspicious soft tissue calcifications. IMPRESSION: Markedly decreased right effusion. Smaller disc desiccation are noted along the right me dial tibial plateau not previously identified. This could be secondary to soft tissue calcifications not previously identified secondary to positioning or potentially related to small avulsion calcifica tions. Reviewed by: Shira Engel MD on 11/04/2021 4:39 PM PDT Approved by: Shira Engel MD on 11/04/2021 4:39 PM PDT Station ID: [id number]
== END 2021-11-04 23:59 | disposition home or self-care (01) ==
LOC: DI.WOS 08:00
PROVIDERS: ATTEND Physician Assistant Surgical
DX: M25.461 Effusion, right knee (principal)

== ENCOUNTER 2022-02-03 06:15 | Emergency (ER) | payer MEDICARE ==
[2022-02-03] MEDS ORDERED: SODIUM CHLORIDE 0.9% 1,000 ML IV STA ×2 (06:26→06:56)
[2022-02-03] MEDS ORDERED: DEXAMETHASONE 10 MG/ML VIAL IV STA (06:48)
[2022-02-03] MEDS ORDERED: IPRATROPIUM/ALBUTEROL 3 ML NEB INH STA (06:48)
--- NOTE | 2022-02-03 06:53 | ED Physician Documentation ---
History of Present Illness - Stated complaint Stated Complaint: SOA/COUGH - Chief complaint Chief Complaint: General - History obtained from History obtained from: Patient - Additonal information Additional information: The patient comes to the emergency department chief complaint of shortness of breath and cough and just "not feeling well". She states her symptoms started about 5 to 6 days ago. She started to feel tired and had a sore throat and body aches. She was working in her garden and continued working in her garden but by the end of the day, felt just exhausted. The patient states she developed a cough over the ensuing days and as well as a sore throat. The patient has felt as though she has had fevers on and off, though she has not measured her temperature. She smokes marijuana but has not smoked cigarettes since she was in her 20s and denies any history of COPD that she knows of. She does admit that she has been on some inhalers and steroids in the past, however. The pat debbie states that she is here because she and some friends made a bat while watching the football game yesterday and the patient lost the bat and so had to come to the ED to be tested for COVID. She states that is the main reason she is here and she did not come with the intent of getting any other work-up done because she is concerned about pain for her. The patient denies any other complaints at this time. She has no cardiac history. She has had no edema or calf pain. No GI symptoms. No other complaints at this time. Review of Systems Ten Systems: 10 systems reviewed and negative Constitutional: reports: Myalgias Eyes: reports: Reviewed and negative Ears: reports: Reviewed and negative Nose: reports: Reviewed and negative Throat: reports: Reviewed and negative Cardiac: reports: Reviewed and negative Respiratory: reports: Dyspnea, Cough GI: reports: Reviewed and negative : reports: Reviewed and negative Skin: reports: Reviewed and negative Musculoskeletal: reports: Reviewed and negative Neurologic: reports: Reviewed and negative Psychiatric: reports: Reviewed and negative Endocrine: reports: Reviewed and negative Immunocompromised: reports: Reviewed and negative PD PAST MEDICAL HISTORY - Past Medical History Cardiovascular: None Respiratory: None Neuro: None Endocrine/Autoimmune: None GI: None 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 HEENT: None Psych: None Musculoskeletal: Chronic back pain Derm: None - Past Surgical History Past Surgical History: No - Present Medications Home Medications: Ambulatory Orders Medication Instructions Recorded Confirmed Acyclovir 400 mg PO 5XD #30 tablet 04/04/18 Amitriptyline [Elavil] 25 mg PO HS #30 tablet 04/04/18 Hydrocodone/Acetaminophen [[place] 1 each PO Q6H PRN #15 tablet 04/04/18 5-325 Tablet] Lidocaine Patch 5% [Lidoderm Patch] 1 patch TOP DAILY PRN #10 patch 04/04/18 dexAMETHasone [Decadron] 4 mg PO DAILY #5 tablet 04/04/18 Cyclobenzaprine [Flexeril] 10 mg PO TID PRN #20 tablet 12/17/18 Hydrocodone/Acetaminophen 1 - 2 each PO Q6H PRN #14 tablet 12/17/18 [Hydrocodon-Acetaminophen 5-325] Lidocaine Patch 5% [Lidoderm Patch] 1 patch TOP DAILY PRN #10 patch 12/17/18 HYDROcod/ACETAM 5/325 [[place] 5/325] 1 - 2 tab PO Q6H PRN #20 tablet 10/25/21 - Allergies Allergies/Adverse Reactions: Allergies Allergy/AdvReac Type Severity Reaction Status Date / Time No Known Drug Allergies Allergy Verified 10/25/21 11:42 - Social History Does the pt smoke?: No Smoking Status: Never smoker Does the pt drink ETOH?: No Does the pt have substance abuse?: No - Immunizations Immunizations are current?: Yes - POLST Patient has POLST: No PD ED PE NORMAL - Vitals Vital signs reviewed: Yes - General General: Alert and oriented X 3, Well developed/nourished, Other (Anxious appearing patient who appears mildly ill but otherwise in no distress.) - HEENT HEENT: Atraumatic, PERRL, EOMI, Moist mucous membranes - Neck Neck: Supple, no meningeal sign - Cardiac Cardiac: Strong equal pulses, Other (Tachycardic rate regular rhythm no murmurs) - Respiratory Respiratory: No respiratory distress, Other (Mildly coarse breath sounds with occasional faint wheezes. Frequent expiratory, irritated cough with moderate congestion.) - Abdomen Abdomen: Soft, Non tender, Non distended - Derm Derm: Normal color, Warm and dry, No rash - Extremities Extremities: No deformity, No edema, No calf tenderness / cord - Neuro Neuro: Alert and oriented X 3 - Psych Psych: Normal mood, Normal affect Results - Vitals Vitals: Vital Signs - 24 hr 02/03/22 06:20 Temperature 36 C L Heart Rate 142 H Respiratory 18 Rate Blood Pressure 132/119 H O2 Saturation 98 Oxygen O2 Source Room air - EKG (time done) 0620 Rate: Rate (enter#) (131) Rhythm: Sinus tachycardia [place]: Normal Intervals: Normal MA QRS: Normal Ischemia: Normal ST segments Compare to prior EKG: Old EKG unavailable Computer interpretation: Agree with computer PD MEDICAL DECISION MAKING - ED course Complexity details: reviewed results, re-evaluated patient, considered differential, d/w patient ED course: The patient was placed on the telemetry monitor upon arrival in the emergency department and found to have a heart rate in the 130s to 140s. EKG showed sinus tach. The patient initially declined all intervention or work-up except for a viral panel, but after I spoke with her, the patient agreed to Be treated and worked up beyond the viral panel. She was started on IV fluids and labs are drawn and sent. At this point in time, the patient is receiving her fluids, DuoNeb, and Decadron and is signed out to Dr. Quinteros at change of shift, pending results of work-up.
[2022-02-03 07:11] LABS: BASOPHILS % (AUTO) 0.5 %; EOSINOPHILS # (AUTO) 0.3 10^3/uL (0.0-0.7); EOSINOPHILS % (AUTO) 3.9 %; HCT - HEMATOCRIT 46.3 % (37.0-47.0); HGB - HEMOGLOBIN 15.6 g/dL (12.0-16.0); LYMPHOCYTES # (AUTO) 3.5 10^3/uL (1.5-3.5); LYMPHOCYTES % (AUTO) 40.8 %; MEAN CORPUSCULAR HEMOGLOBIN 29.3 pg (27.0-31.0); MEAN CORPUSCULAR HGB CONC 33.7 g/dL (32.0-36.0); MEAN CORPUSCULAR VOLUME 86.9 fL (81.0-99.0); MONOCYTES # (AUTO) 0.7 10^3/uL (0.0-1.0); MONOCYTES % (AUTO) 7.6 %; PLT - PLATELET COUNT 356 10^3/uL (130-450); RED BLOOD COUNT 5.33 10^6/uL (4.20-5.40); RED CELL DISTRIBUTION WIDTH 13.2 % (12.0-15.0); WHITE BLOOD COUNT 8.5 x10^3/uL (4.8-10.8)
[2022-02-03 07:27] LABS: ALBUMIN 4.7 g/dL (3.2-5.5); ALBUMIN/GLOBULIN RATIO 1.5 (1.0-2.2); BILIRUBIN,TOTAL 0.7 mg/dL (0.2-1.0); CALCIUM 9.9 mg/dL (8.5-10.3); CREATININE 0.7 mg/dL (0.4-1.0); POTASSIUM 3.7 mmol/L (3.5-5.0); TOTAL PROTEIN 7.9 g/dL (6.7-8.2)
[2022-02-03 07:49] LABS: B. PARAPERTUSSIS- RESP PCR PAN NOT DETECTED; B. PERTUSSIS- RESP PCR PANEL NOT DETECTED; C. PNEUMONIAE- RESP PCR PANEL NOT DETECTED; CORONAVIRUS 229E-RESP PCR NOT DETECTED; CORONAVIRUS HKU1-RESP PCR NOT DETECTED; CORONAVIRUS NL63-RESP PCR NOT DETECTED; CORONAVIRUS OC43-RESP PCR NOT DETECTED; HUMAN METAPNEUMOVIRUS NOT DETECTED; INFLUENZA A- RESP PCR PANEL NOT DETECTED; INFLUENZA B - RESP PCR PANEL NOT DETECTED; M. PNEUMONIAE- RESP PCR PANEL NOT DETECTED; PARAINFLUENZA VIRUS 1 NOT DETECTED; PARAINFLUENZA VIRUS 2 NOT DETECTED; PARAINFLUENZA VIRUS 3 NOT DETECTED; PARAINFLUENZA VIRUS 4 NOT DETECTED; RHINOVIRUS/ENTEROVIRUS NOT DETECTED; RSV- RESP PCR PANEL DETECTED; SARS-CoV-2 -RESP PCR PANEL NOT DETECTED
[2022-02-03] MEDS ORDERED: ALBUTEROL 1 PUFF INH STA (08:11)
[2022-02-03] MEDS ORDERED: BENZONATATE 100 MG CAPSULE PO STA (08:11)
--- NOTE | 2022-02-03 08:18 | ED Physician Documentation ---
ED Addendum - Addendum Addendum: 02/03/22 08:16 Patient states she feels significantly improved with both the IV fluids leading to less general weakness and the nebulizer treatment helped her breathing. She still has some expiratory wheezing. We will give her dosing of albuterol MDI so there is spacer and MDI teaching as well. She does feel improved enough for being discharged. Her O2 sats are moderately low at 93 to 94% on room air. She denies regular tobacco cigarette use. Her chest x-ray showed some atelectasis but no infiltrate per se. Her R PCR test is positive for RSV. This would correlate with her symptoms well. Basic blood tests are normal. Disposition: The patient discharged home in stable condition. Diagnoses: 1. Dyspnea with wheezing 2. RSV bronchiolitis 3. Dehydration
--- NOTE | 2022-02-03 08:23 | XRAY Report ---
PROCEDURE: Chest 1 View X-Ray INDICATIONS: chest pain TECHNIQUE: One view of the chest was acquired. COMPARISON: Chest x-ray 11/10/2018 FINDINGS: Surgical changes and devices: None. Lungs and pleura: Linear opacity overlying the right midlung zone likely atelectasis. Mediastinum: Mediastinal contours appear normal. Heart size is normal. Bones and chest wall: No suspicious bony lesions. Overlying soft tissues appear unremarkable. IMPRESSION: No consolidations to suggest pneumonia. The above findings are concordant with preliminary report. Reviewed by: Shira Engel MD on 02/03/2022 8:22 AM PDT Approved by: Shira Engel MD on 02/03/2022 8:22 AM PDT Station ID: [id number]
[2022-02-03 08:39] VITALS: BP 141/79
== END 2022-02-03 08:50 | disposition home or self-care (01) ==
LOC: ED 06:15
DX: J21.0 Acute bronchiolitis due to respiratory syncytial virus (principal); E86.0 Dehydration; Z87.891 Personal history of nicotine dependence; Z20.822 Contact with and (suspected) exposure to COVID-19
CPT/HCPCS: 36415; 71045; 80053; 83690; 85025; 87633; 93005; 94640; 94664; 96361; 96374; 99283; 99284; A9270

== ENCOUNTER 2022-03-05 06:24 | Emergency (ER) | payer MEDICARE ==
[2022-03-05] MEDS ORDERED: KETOROLAC 30 MG/ML VIAL IVP STA (06:45)
[2022-03-05] MEDS ORDERED: ONDANSETRON 4 MG/2 ML VIAL IVP STA (06:46)
[2022-03-05 06:53] LABS: BILIRUBIN,URINE NEGATIVE (NEGATIVE); GLUCOSE, URINE (UA) NEGATIVE (NEGATIVE); KETONES,URINE (UA) TRACE mg/dL (NEGATIVE); LEUKOCYTE ESTERASE, URINE SMALL (NEGATIVE); NITRITE,URINE POSITIVE (NEGATIVE); OCCULT BLOOD,URINE SMALL (NEGATIVE); PROTEIN,URINE NEGATIVE (NEGATIVE); UROBILINOGEN,URINE 0.2 (NORMAL) E.U./dL (NORMAL)
[2022-03-05 06:55] LABS: CLARITY,URINE HAZY (CLEAR)
[2022-03-05 07:01] LABS: ALBUMIN 4.5 g/dL (3.2-5.5); ALBUMIN/GLOBULIN RATIO 1.3 (1.0-2.2); BILIRUBIN,TOTAL 0.6 mg/dL (0.2-1.0); CALCIUM 9.7 mg/dL (8.5-10.3); CREATININE 0.7 mg/dL (0.4-1.0); POTASSIUM 3.7 mmol/L (3.5-5.0)
[2022-03-05 07:02] LABS: BACTERIA,URINE Moderate /HPF (None Seen); EPITHELIAL CELLS,UR RARE Transitional /HPF (<= Few); RBC,URINE 0-5 /HPF (0-5); SQUAMOUS EPITHELIAL CELL,UR FEW Squamous (<= Few)
[2022-03-05 07:03] LABS: BASOPHILS # (AUTO) 0.1 10^3/uL (0.0-0.1); BASOPHILS % (AUTO) 0.4 %; EOSINOPHILS # (AUTO) 0.2 10^3/uL (0.0-0.7); EOSINOPHILS % (AUTO) 1.5 %; HCT - HEMATOCRIT 45.8 % (37.0-47.0); HGB - HEMOGLOBIN 15.6 g/dL (12.0-16.0); LYMPHOCYTES # (AUTO) 4.2 10^3/uL (1.5-3.5); LYMPHOCYTES % (AUTO) 36.2 %; MEAN CORPUSCULAR HEMOGLOBIN 29.7 pg (27.0-31.0); MEAN CORPUSCULAR HGB CONC 34.1 g/dL (32.0-36.0); MEAN CORPUSCULAR VOLUME 87.2 fL (81.0-99.0); MEAN PLATELET VOLUME 8.9 fL (7.9-10.8); MONOCYTES # (AUTO) 0.7 10^3/uL (0.0-1.0); MONOCYTES % (AUTO) 6.1 %; NEUTROPHILS # (AUTO) 6.4 10^3/uL (1.5-6.6); NEUTROPHILS % (AUTO) 55.5 %; PLT - PLATELET COUNT 413 10^3/uL (130-450); RED BLOOD COUNT 5.25 10^6/uL (4.20-5.40); RED CELL DISTRIBUTION WIDTH 13.1 % (12.0-15.0); WHITE BLOOD COUNT 11.6 x10^3/uL (4.8-10.8)
--- NOTE | 2022-03-05 08:20 | CT Report ---
PROCEDURE: ABDOMEN/PELVIS WO INDICATIONS: R flank pain TECHNIQUE: Noncontrast 5 mm thick sections acquired from the diaphragms to the symphysis. 5 mm coronal and sagi ttal reformats were then performed. For radiation dose reduction, the following was used: automated exposure control, adjustment of mA and/or kV according to patient size. COMPARISON: None. FINDINGS: Image quality: Excellent. ABDOMEN: Lung bases: Lung bases are clear. Heart size is normal. Solid organs: Liver and spleen are normal in size. Diffuse hepatic steatosis. Gallbladder is unremar kable without calcified gallstones. Pancreas is normal in contours. No adrenal nodules. Kidneys ar e normal in size, without hydronephrosis or nephrolithiasis. Peritoneum and bowel: Unenhanced bowel loops demonstrate normal wall thickness and caliber. Sigmoid diverticulosis without evidence of diverticulitis. No free fluid or air. Nodes and vessels: No retroperitoneal or mesenteric adenopathy by size criteria. Aorta and inferior vena cava are normal in caliber. Miscellaneous: No ventral hernias. PELVIS: Genitourinary: Bladder wall thickness is normal. Miscellaneous: No inguinal hernias or adenopathy. Bones: No suspicious bony lesions. No vertebral body compression fractures. Lumbar degenerative mike nge. IMPRESSION: 1. Diffuse hepatic steatosis. 2. No evidence of acute intra-abdominal process. 3. Sigmoid diverticulosis. Reviewed by: Lane Joyner MD on 03/05/2022 8:19 AM PST Approved by: Lane Joyner MD on 03/05/2022 8:19 AM PST Station ID: [id number]
[2022-03-05] MEDS ORDERED: cefTRIAXone 1 GM in SODIUM CHLORIDE 0.9% MINIBAG 100 ML IV STA (08:47)
[2022-03-05] MEDS ORDERED: oxyCODONE/ACET 5/325 Prepack 4 PO STA (08:52)
[2022-03-05] MEDS: MORPHINE 2 MG/ML CARPUJECT IVP STA ×2 (09:21→09:23)
--- NOTE | 2022-03-05 09:42 | ED Physician Documentation ---
History of Present Illness - Stated complaint Stated Complaint: R SIDE PX - Chief complaint Chief Complaint: Back Pain - History obtained from History obtained from: Patient - Additonal information Additional information: Patient is a 67-year-old female presenting for evaluation of right flank pain that is been ongoing for 4 days.It is sharp and at times throbbing. She has associated nausea and dry heaves. She initially thought she had a pulled muscle and has been using lidocaine patches and acetaminophen without any improvement.She denies any fever, chest pain, difficulty breathing.She reports mild decrease in urination but otherwise no dysuria Or hematuria.She denies recent trauma or injury.She denies a history of kidney stones. Review of Systems Constitutional: denies: Fever Nose: denies: Congestion Cardiac: denies: Chest pain / pressure Respiratory: denies: Dyspnea GI: reports: Nausea, Vomiting. 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 : None HEENT: None Psych: None Musculoskeletal: Chronic back pain Derm: None - Past Surgical History Past Surgical History: No - Present Medications Home Medications: Ambulatory Orders Medication Instructions Recorded Confirmed HYDROcod/ACETAM 5/325 [[place] 5/325] 1 tablet PO Q6H PRN #10 tablet 03/05/22 Ondansetron Odt [Zofran] 4 mg TL Q6H PRN #10 tablet 03/05/22 cephALEXin [Keflex] 500 mg PO Q6H #28 cap 03/05/22 - Allergies Allergies/Adverse Reactions: Allergies Allergy/AdvReac Type Severity Reaction Status Date / Time No Known Drug Allergies Allergy Verified 03/05/22 06:37 - Social History Does the pt smoke?: No Smoking Status: Never smoker Does the pt drink ETOH?: No Does the pt have substance abuse?: No - Immunizations Immunizations are current?: Yes - POLST Patient has POLST: No PD ED PE NORMAL - General General: Alert and oriented X 3, No acute distress, Well developed/nourished - HEENT HEENT: Atraumatic - Neck Neck: Supple, no meningeal sign - Cardiac Cardiac: RRR, Strong equal pulses - Respiratory Respiratory: No respiratory distress, Clear bilaterally - Abdomen Abdomen: Normal bowel sounds, Soft, Non tender, Non distended - Back Back: No CVA TTP, No spinal TTP - Derm Derm: Other (Redness to the left flank in the area where she had applied a lidocaine patch, no vesicles Or open wounds) - Extremities Extremities: No edema Results - Vitals Vitals: Vital Signs - 24 hr 03/05/22 03/05/22 06:34 10:02 Temperature 36.5 C 36.7 C Heart Rate 115 H 90 Respiratory 22 16 Rate Blood Pressure 152/110 H 165/85 H O2 Saturation 97 100 Oxygen O2 Source Room air - Labs Labs: Laboratory Tests 03/05/22 03/05/22 03/05/22 06:40 06:40 06:40 WBC 11.6 H RBC 5.25 Hgb 15.6 Hct 45.8 MCV 87.2 MCH 29.7 MCHC 34.1 RDW 13.1 Plt Count 413 MPV 8.9 Neut # (Auto) 6.4 Lymph # (Auto) 4.2 H R[place] # (Auto) 0.7 Eos # (Auto) 0.2 Baso # (Auto) 0.1 Absolute Nucleated RBC 0.00 Nucleated RBC % 0.0 Sodium 132 L Potassium 3.7 Chloride 96 L Carbon Dioxide 25 Anion Gap 11.0 BUN 12 Creatinine 0.7 Estimated GFR (MDRD) 84 L Glucose 121 H Calcium 9.7 Total Bilirubin 0.6 AST 19 ALT 20 Alkaline Phosphatase 62 Total Protein 8.0 Albumin 4.5 Globulin 3.5 Albumin/Globulin Ratio 1.3 Lipase 48 Urine Color YELLOW Urine Clarity HAZY Urine pH 6.0 Ur Specific [place] 1.025 Urine Protein NEGATIVE Urine Glucose (UA) NEGATIVE Urine Ketones TRACE Urine Occult Blood SMALL H Urine Nitrite POSITIVE H Urine Bilirubin NEGATIVE Urine Urobilinogen 0.2 (NORMAL) Ur Leukocyte Esterase SMALL H Urine RBC 0-5 Urine WBC 6-10 H Ur Epithelial Cells RARE Transitional Ur Squamous Epith Cells FEW Squamous Urine Bacteria Moderate H Ur Microscopic Review INDICATED Urine Culture Comments INDICATED PD MEDICAL DECISION MAKING - ED course Complexity details: reviewed results, re-evaluated patient, d/w patient ED course: Patient presenting for evaluation of right flank pain. Slightly tachycardic but otherwise reassuring vitals. Labs were reviewed. Urine is suggestive of an infection. CT scan was obtained And negative for acute findings. Patient is feeling better with fluids and antibiotics here. I did offer some pain medication at initial onset but she had declined as she did not have a ride home.Patient does not appear septic. She is counseled on treatment plan as well as concerning symptoms to return for. Departure - Departure Disposition: Home, Self Care Clinical Impression: Right flank pain UTI (urinary tract infection) Qualifiers: Urinary tract infection type: acute cystitis Hematuria presence: without hematuria Qualified Code(s): N30.00 - Acute cystitis without hematuria Condition: Stable Instructions: ED Flank Pain Uncertain Cause, ED UTI Cystitis Female Prescriptions: cephALEXin [Keflex] 500 mg PO Q6H #28 cap HYDROcod/ACETAM 5/325 [[place] 5/325] 1 tablet PO Q6H PRN #10 tablet PRN Reason: Pain Ondansetron Odt [Zofran] 4 mg TL Q6H PRN #10 tablet PRN Reason: Nausea / Vomiting Comments: You were found to have a urinary tract infection. Your CT scan did not show signs of inflammation or swelling Kidney or A kidney stone. I have sent prescriptions for antibiotics and a small amount of [facility]otic pain medication [facility] in [place]. Please make sure to take the medications as directed. Please continue to stay hydrated. If any worsening symptoms please consider return to the ER. I am prescribing a short course of narcotic pain medication for you. These are potentially dangerous and addictive medications that should be used carefully. These medications may constipate you. Take an [id number] stool softener (docusate) twice daily with plenty of water while taking these medications. If you go 24 hours without a bowel movement, take [id number] miralax, per package instructions. Do not drink or drive while taking these medications. If you received narcotic or sedating medications while in the emergency department, do not drive for 24 hours. Store this medication in a safe, secure place and out of reach of children. It is a violation of federal law to give or sell this medication to another person or to use in a manner other than prescribed. The ED will not refill narcotic prescriptions, including prescriptions lost or stolen. To dispose of unwanted medications: 1. [facility] [address] in [place] has a medication drop box. They accept prescription medications (in pill form) Thursday through Thursday 9:00 a.m. to 5:00 p.m. 2. [facility] [employer] accepts prescription medications (in pill form only) for disposal year round. Call for more information. 3. Contact the [facility] for the next [facility] sponsored prescription drug collection event. , x7310, or [phone]; Note that many narcotic pain relievers also contain Tylenol/acetaminophen. Please ensure that your total dose of acetaminophen from all sources does not exceed 3 g (3000 mg) per day. Forms: Activity restrictions Discharge Date/Time: 03/05/22 10:03
[2022-03-05 10:03] VITALS: BP 165/85
== END 2022-03-05 10:03 | disposition home or self-care (01) ==
LOC: ED 06:24
DX: N30.00 Acute cystitis without hematuria (principal)
CPT/HCPCS: 36415; 80053; 81001; 81003; 83690; 85025; 87077; 87086; 87181; 96365; 96375; 99282

== ENCOUNTER 2022-03-14 04:05 | Emergency (ER) | payer MEDICARE ==
[2022-03-14] MEDS ORDERED: KETOROLAC 30 MG/ML VIAL IVP STA (04:28)
[2022-03-14] MEDS ORDERED: SODIUM CHLORIDE 0.9% 1,000 ML IV STA (04:28)
[2022-03-14] MEDS ORDERED: ONDANSETRON 4 MG/2 ML VIAL IVP STA (04:28)
[2022-03-14 04:29] LABS: BASOPHILS # (AUTO) 0.1 10^3/uL (0.0-0.1); BASOPHILS % (AUTO) 0.6 %; EOSINOPHILS # (AUTO) 0.3 10^3/uL (0.0-0.7); EOSINOPHILS % (AUTO) 2.9 %; HGB - HEMOGLOBIN 14.5 g/dL (12.0-16.0); LYMPHOCYTES # (AUTO) 3.4 10^3/uL (1.5-3.5); LYMPHOCYTES % (AUTO) 33.6 %; MEAN CORPUSCULAR HEMOGLOBIN 29.8 pg (27.0-31.0); MEAN CORPUSCULAR HGB CONC 33.7 g/dL (32.0-36.0); MEAN CORPUSCULAR VOLUME 88.3 fL (81.0-99.0); MEAN PLATELET VOLUME 8.6 fL (7.9-10.8); MONOCYTES # (AUTO) 0.6 10^3/uL (0.0-1.0); MONOCYTES % (AUTO) 6.2 %; NEUTROPHILS # (AUTO) 5.7 10^3/uL (1.5-6.6); NEUTROPHILS % (AUTO) 56.5 %; PLT - PLATELET COUNT 358 10^3/uL (130-450); RED BLOOD COUNT 4.87 10^6/uL (4.20-5.40); RED CELL DISTRIBUTION WIDTH 13.4 % (12.0-15.0); WHITE BLOOD COUNT 10.1 x10^3/uL (4.8-10.8)
[2022-03-14 04:42] LABS: ALBUMIN 4.3 g/dL (3.2-5.5); ALBUMIN/GLOBULIN RATIO 1.3 (1.0-2.2); BILIRUBIN,TOTAL 0.5 mg/dL (0.2-1.0); CALCIUM 9.5 mg/dL (8.5-10.3); CREATININE 0.7 mg/dL (0.4-1.0); POTASSIUM 3.7 mmol/L (3.5-5.0); TOTAL PROTEIN 7.6 g/dL (6.7-8.2)
--- NOTE | 2022-03-14 04:55 | ED Physician Documentation ---
History of Present Illness - Stated complaint Stated Complaint: RIGHT LUMBAR PX - Chief complaint Chief Complaint: Back Pain - History obtained from History obtained from: Patient - Additonal information Additional information: Patient is a 67-year-old female with no significant past medical history presenting for evaluation of right flank pain that has been persistent for 2 weeks.She initially thought she had pulled a muscle and was using lidocaine patches to the area. She was initially seen on the emergency department On March 05 as the pain was not getting any better.She was found to have a urinary tract infection. She did have an erythematous rash to the area but stated it was from the lidocaine patches. She had labs and a noncontrast CT of the abdomen and pelvis which did not show a stone or other abnormality. She was started on p.o. antibiotics. She returned The following day due to continued pain. She had repeat labs including a high-sensitivity troponin that was negative. She had a CT angio of the chest And a contrast CT of the abdomen and pelvis Without acute abnormalities.The rash to the right flank Was still present and seem to have slightly spread. There is no herpetic lesions but I did express a concern for possible shingles given the area of the pain And started the patient on valacyclovir. She declined steroids at the time. She went to her PCP, HOWIE Paul on March 10. HOWIE Paul felt that her symptoms were not due to shingles and recommended she see a chiropractor. Patient attempted to see a chiropractor that day but the chiropractor Did not offer any procedures or interventions as she her pain was too high. Patient has been using narcotic pain medications but states she is only been using half a pill and it does not seem to really help. She says the one thing that helped the most was a dose of Toradol that she received at HOWIE Paul's office earlier in the week.The pain Does continue to wrap around to the upper abdomen. Has not gone anywhere else. She describes it as a deep ache and burning. Nothing makes it better or worse.She denies nausea or vomiting but has had a decreased appetite. She denies dysuria. She denies chest pain, difficulty breathing. She has no fevers. Denies IV drug use. 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 - Present Medications Home Medications: Ambulatory Orders Medication Instructions Recorded Confirmed HYDROcod/ACETAM 5/325 [[place] 5/325] 1 tablet PO Q6H PRN #10 tablet 03/05/22 03/14/22 Ondansetron Odt [Zofran] 4 mg TL Q6H PRN #10 tablet 03/05/22 03/14/22 cephALEXin [Keflex] 500 mg PO Q6H #28 cap 03/05/22 03/14/22 Valacyclovir HCl [Valtrex] 1,000 mg PO TID 7 Days #21 tablet 03/06/22 03/14/22 polyethylene glycoL 3350 [Miralax] 17 gm PO DAILY PRN #14 packet 03/14/22 predniSONE [Deltasone] 40 mg PO DAILY 4 Days #8 tablet 03/14/22 - Allergies Allergies/Adverse Reactions: Allergies Allergy/AdvReac Type Severity Reaction Status Date / Time No Known Drug Allergies Allergy Verified 03/14/22 04:13 - Social History Does the pt smoke?: No Smoking Status: Never smoker Does the pt drink ETOH?: No Does the pt have substance abuse?: No - Immunizations Immunizations are current?: Yes - POLST Patient has POLST: No PD ED PE NORMAL - General General: Alert and oriented X 3, Well developed/nourished, Other (Sitting in a hunched over position) - HEENT HEENT: Atraumatic, Moist mucous membranes - Neck Neck: Supple, no meningeal sign - Cardiac Cardiac: RRR, No murmur - Respiratory Respiratory: No respiratory distress, Clear bilaterally - Abdomen Abdomen: Normal bowel sounds, Soft, Non distended, Other (Mild right upper quadrant tenderness to palpation; No rebound, no guarding, no hernia or mass) - Back Back: Other (Right CVA tenderness,) - Derm Derm: Warm and dry, Other (Faint erythema and papular rash to right flank That appears improved from prior visits, no vesicles or crusting; No fluctuance) - Extremities Extremities: Normal ROM s pain, No edema, Other (Pedal pulses intact) Results - Vitals Vitals: Vital Signs - 24 hr 03/14/22 03/14/22 03/14/22 04:09 05:30 06:13 Temperature 36.6 C 36.5 C 36.1 C L Heart Rate 112 H 101 H 91 Respiratory 24 20 16 Rate Blood Pressure 171/102 H 158/102 H O2 Saturation 99 99 100 Oxygen O2 Source Room air - Labs Labs: Laboratory Tests 03/14/22 03/14/22 03/14/22 04:20 04:20 06:08 WBC 10.1 RBC 4.87 Hgb 14.5 Hct 43.0 MCV 88.3 MCH 29.8 MCHC 33.7 RDW 13.4 Plt Count 358 MPV 8.6 Neut # (Auto) 5.7 Lymph # (Auto) 3.4 [place] # (Auto) 0.6 Eos # (Auto) 0.3 Baso # (Auto) 0.1 Absolute Nucleated RBC 0.00 Nucleated RBC % 0.0 Sodium 132 L Potassium 3.7 Chloride 94 L Carbon Dioxide 24 Anion Gap 14.0 H BUN 8 Creatinine 0.7 Estimated GFR (MDRD) 84 L Glucose 108 H Calcium 9.5 Total Bilirubin 0.5 AST 18 ALT 18 Alkaline Phosphatase 59 Total Protein 7.6 Albumin 4.3 Globulin 3.3 Albumin/Globulin Ratio 1.3 Lipase 40 Urine Color YELLOW Urine Clarity CLEAR Urine pH 6.5 Ur Specific [place] <=1.005 Urine Protein NEGATIVE Urine Glucose (UA) NEGATIVE Urine Ketones NEGATIVE Urine Occult Blood TRACE-INTA Urine Nitrite NEGATIVE Urine Bilirubin NEGATIVE Urine Urobilinogen 0.2 (NORMAL) Ur Leukocyte Esterase TRACE H Urine RBC 0-5 Urine WBC 0-3 Ur Squamous Epith Cells FEW Squamous Urine Bacteria Rare Ur Microscopic Review INDICATED Urine Culture Comments INDICATED PD MEDICAL DECISION MAKING - ED course Complexity details: reviewed results, re-evaluated patient, d/w patient ED course: Patient is a 67-year-old presenting for evaluation of right flank pain that has been persistent for the past 2 weeks. She has been evaluated twice previously in the ED for the same Concerns. She has been treated for a UTI and also finished a course of Valtrex for concerns for shingles.The pain has been unc hanged. She did follow-up with her PCP who was also perplexed by the etiology of her symptoms and referred her to a chiropractor.Pain is not worse with eating And she has been having normal urination and stools. There is no chest pain or difficulty breathing.The pain has not migrated elsewhere to suggest a dissection.Her neuro exam is normal.She is afebrile. She has no bowel or bladder incontinence, no saddle anesthesia. The rash does not appear to be cellulitic in nature. The preliminary read on her CT scan demonstrates mild right colonic constipation, hepatic steatosis, diverticulosis.Patient has already tried a number of treatment regimens without any improvement.As the pain appears to be localized to one region and has not changed in 2 weeks and along with the patient's description of it being a burning pain I offered a course of steroids given that it could be nerve pain. Patient reports having difficulties with steroids in the past as making it difficult for her to sleep but she is willing to try this. She does not want to take a long tapered course but would prefer a shorter course.I did encourage continued close follow-up with her PCP. Patient is aware that she can return to the ER at any time For another evaluation. 0619 - Patient feeling better after small dose of Dilaudid.Continues to describe the pain as a burning pain And at times feels like sharp jabs or needles. The rash is not itchy Or bothersome to her. Departure - Departure Disposition: 01 Home, Self Care Clinical Impression: Right flank pain, Rash and nonspecific skin eruption Condition: Stable Instructions: ED Flank Pain Uncertain Cause Prescriptions: predniSONE [Deltasone] 40 mg PO DAILY 4 Days #8 tablet polyethylene glycoL 3350 [Miralax] 17 gm PO DAILY PRN #14 packet PRN Reason: Constipation Comments: The exact etiology of your pain remains unclear. Your labs are again reassuring and there is no signs of infection. Your urine is also clear.Your CT scan does show some mild constipation on the right and so I will start you on MiraLAX to help with that.Because you describe your pain as a burning pain it could be nerve related.So I have started you on a course of steroids. You have opted not to take a longer tapered course and would prefer a short course which is what I have prescribed. We have given you the first dose today. I have sent your prescriptions to [facility] in [place]. I would recommend calling your primary care doctor today for a close follow-up as You may still need further testing or referral if your pain is not improving.Please return to the emergency depart ment at any time if your pain is uncontrolled or you have any new concerns.
[2022-03-14] MEDS ORDERED: HYDROmorphone 1 MG/ML CARPUJECT IVP STA ×2 (05:32→06:35)
[2022-03-14] MEDS ORDERED: iohexoL-300 100 ML VIAL ONE (05:37)
[2022-03-14 06:16] LABS: BILIRUBIN,URINE NEGATIVE (NEGATIVE); GLUCOSE, URINE (UA) NEGATIVE (NEGATIVE); KETONES,URINE (UA) NEGATIVE (NEGATIVE); LEUKOCYTE ESTERASE, URINE TRACE (NEGATIVE); NITRITE,URINE NEGATIVE (NEGATIVE); OCCULT BLOOD,URINE TRACE-INTA (NEGATIVE); PH,URINE 6.5 PH (5.0-7.5); PROTEIN,URINE NEGATIVE (NEGATIVE); UROBILINOGEN,URINE 0.2 (NORMAL) E.U./dL (NORMAL)
[2022-03-14] MEDS ORDERED: iohexoL-300 100 ML VIAL IVP ONE (06:17)
[2022-03-14 06:23] LABS: BACTERIA,URINE Rare /HPF (None Seen); CLARITY,URINE CLEAR (CLEAR); RBC,URINE 0-5 /HPF (0-5); SQUAMOUS EPITHELIAL CELL,UR FEW Squamous (<= Few); WBC,URINE 0-3 /HPF (0-5)
[2022-03-14] MEDS ORDERED: predniSONE 20 MG TABLET PO STA (06:35)
[2022-03-14 06:57] VITALS: BP 166/91
--- NOTE | 2022-03-14 08:15 | CT Report ---
PROCEDURE: ABDOMEN/PELVIS W INDICATIONS: worsening R sided back/abd pain CONTRAST: 100ml omni 300 TECHNIQUE: After the administration of IV contrast, 5 mm thick sections acquired from the diaphragms to the symp hysis. 5 mm thick coronal and sagittal reformats were acquired. For radiation dose reduction, the f ollowing was used: automated exposure control, adjustment of mA and/or kV according to patient size. COMPARISON: CT of abdomen and pelvis dated 03/06/2022, 03/05/2022. FINDINGS: Image quality: Excellent. ABDOMEN: Lung bases: Mild right posterior dependent atelectasis is seen. Heart size is normal. Solid organs: Liver and spleen are normal in size. Moderate hepatic steatosis is again seen, no disc rete hepatic lesion. Spleen shows normal enhancement. Gallbladder is within normal limits. Biliary s ystem is non dilated. Pancreas enhances normally. No adrenal nodules. Kidneys demonstrate normal s ize and enhancement, without hydronephrosis. Peritoneum and bowel: Bowel loops demonstrate normal wall thickness and caliber. Appendix is visual ized and is within normal limits. Sigmoid diverticulosis is again noted, without colonic wall thicken ing or mesenteric fat stranding. No abscess collection. No free fluid or air. Nodes and vessels: No retroperitoneal or mesenteric adenopathy by size criteria. Aorta and inferior vena cava are normal in size. Mild to moderate atherosclerotic calcifications are seen in abdominal aorta. Miscellaneous: No ventral hernias. PELVIS: Genitourinary: Bladder wall thickness is normal. Miscellaneous: No inguinal hernias or adenopathy. Bones: No suspicious bony lesions. No vertebral body compression fractures. Degenerative disc dise ase throughout lower thoracic and lumbar spine is seen. IMPRESSION: 1. No acute inflammatory process is seen in abdomen or pelvis. No significant changes from previous s tudy. 2. Normal appendix. No abscess collection. No free fluid of free air. Sigmoid diverticulosis without CT evidence of acute diverticulitis. 3. Moderate hepatic steatosis, no discrete hepatic lesion. 4. Mild right basilar dependent atelectasis. No discrepancies. Reviewed by: Chandler Baltazar MD on 03/14/2022 8:14 AM PST Approved by: Chandler Baltazar MD on 03/14/2022 8:14 AM PST Station ID: [id number]
== END 2022-03-14 06:55 | disposition home or self-care (01) ==
LOC: ED 04:05
DX: R10.9 Unspecified abdominal pain (principal); R21 Rash and other nonspecific skin eruption
CPT/HCPCS: 36415; 74177; 80053; 81001; 83690; 85025; 87086; 96374; 96375; 96376; 99284; J1170; J7512; Q9967; 81003

== ENCOUNTER 2023-06-17 08:00 | Outpatient (CLI) | payer MEDICARE | END 2023-06-17 08:01 | disposition home or self-care (01) | LOC: LAB.S 08:00 | PROVIDERS: ATTEND Registered Nurse | DX: R05.9 Cough, unspecified (principal) ==

== ENCOUNTER 2023-06-17 08:00 | Outpatient (CLI) | payer MEDICARE ==
--- NOTE | 2023-06-17 11:48 | XRAY Report ---
PROCEDURE: Chest 2V INDICATIONS: ACUTE COUGH, BODY ACHES TECHNIQUE: 2 views of the chest were acquired. COMPARISON: Chest x-ray, 03/06/2022. FINDINGS: Surgical changes and devices: None. Lungs and pleura: Mild left hemidiaphragm elevation. No pleural effusions or pneumothorax. Lungs ar e clear. Mediastinum: Mediastinal contours appear normal. Heart size is normal. Bones and chest wall: No suspicious bony lesions. Overlying soft tissues appear unremarkable. IMPRESSION: No acute cardiopulmonary process. Reviewed by: Desirae Onofre MD on 06/17/2023 10:47 AM JUANA Approved by: Desirae Onofre MD on 06/17/2023 10:47 AM JUANA Station ID: [id number]
== END 2023-06-17 23:59 | disposition home or self-care (01) ==
LOC: DI.S 08:00
PROVIDERS: ATTEND Registered Nurse
DX: M79.10 Myalgia, unspecified site (principal); R05.1 Acute cough

== ENCOUNTER 2023-09-11 15:41 | Emergency (ER) | payer MEDICARE ==
[2023-09-11] MEDS: KETOROLAC 60 MG/2 ML VIAL IM STA (16:30)
--- NOTE | 2023-09-11 16:41 | ED Physician Documentation ---
History of Present Illness - Stated complaint Stated Complaint: RT KNEE INJ - Chief complaint Chief Complaint: Trauma Ext - History obtained from History obtained from: Patient - History of Present Illness Timing: Yesterday Pain level max: 8 Pain level now: 8 - Additonal information Additional information: 68-year-old female states that she was helping move furniture yesterday when she had increasing pain in her right knee. She states she has had similar symptoms in the past. Had increased pain and swelling today. Worse with walking, better with rest. No falls. No twisting. PD PAST MEDICAL HISTORY - Past Medical History Cardiovascular: None Respiratory: None Neuro: None Endocrine/Autoimmune: None GI: None COURT BAILIFF OR SHERIFF: None : None HEENT: None Psych: None Musculoskeletal: Chronic back pain Derm: None - Past Surgical History Past Surgical History: Yes /COURT BAILIFF OR SHERIFF: Other - Present Medications Home Medications: Ambulatory Orders Medication Instructions Recorded Confirmed polyethylene glycoL 3350 [Miralax] 17 gm PO DAILY PRN #14 packet 03/14/22 HYDROcod/ACETAM 5/325 [[place] 5/325] 1 - 2 ea PO Q6H PRN #14 tablet 09/11/23 Ketorolac [Toradol] 10 mg PO Q6H PRN #30 tablet 09/11/23 - Allergies Allergies/Adverse Reactions: Allergies Allergy/AdvReac Type Severity Reaction Status Date / Time No Known Drug Allergies Allergy Verified 09/11/23 15:48 - Social History Does the pt smoke?: No Smoking Status: Never smoker Does the pt drink ETOH?: No Does the pt have substance abuse?: No - Immunizations Immunizations are current?: Yes - POLST Patient has POLST: No PD ED PE NORMAL - Vitals Vital signs reviewed: Yes - General General: Alert and oriented X 3, No acute distress - HEENT HEENT: Moist mucous membranes - Derm Derm: Warm and dry - Extremities Extremities: Other (R knee - Moderate joint effusion. There is some medial joint line tenderness. ACL, MCL, PCL, LCL are intact. Unable to tolerate meniscus testing. Limited range of motion secondary to pain. Neurovascular intact) - Neuro Neuro: Alert and oriented X 3 - Psych Psych: Normal mood, Normal affect Results - Vitals Vitals: Vital Signs - 24 hr 09/11/23 15:45 Temperature 36.6 C Heart Rate 100 Respiratory 16 Rate Blood Pressure 155/90 H O2 Saturation 99 Oxygen O2 Source Room air - Rads (name of study) Right knee x-ray Relevant Findings:: Final report received, See rad report PD Medical Decision Making - ED course Complexity details: reviewed results, re-evaluated patient, considered differential, d/w patient ED course: 68-year-old female with a right knee joint effusion and tricompartmental arthritis. Feels better after Toradol injection. Will place on anti- inflammatories for home as well as leg and for breakthrough pain. Declines a brace or crutches. Recommend rest, elevate the area, gentle stretching and fol low-up with orthopedics. Patient counseled regarding signs and symptoms for which I believe and urgent re-evaluation would be necessary. Patient with good understanding of and agreement to plan and is comfortable going home at this time This document was made in part using voice recognition software. While efforts are made to proofread this document, sound alike and grammatical errors may occur. Departure - Departure Disposition: 01 Home, Self Care Clinical Impression: Knee effusion, right Condition: Good Instructions: ED Effusion Knee Follow-Up: Orthopedic Care [Provider Group] - Within 1 week Prescriptions: HYDROcod/ACETAM 5/325 [[place] 5/325] 1 - 2 ea PO Q6H PRN #14 tablet PRN Reason: Pain Ketorolac [Toradol] 10 mg PO Q6H PRN #30 tablet PRN Reason: knee pain Comments: Your prescriptions were sent to [facility] in [place]. You can use the medication as needed for pain. You can ice your knee as well. Continue gentle stretching at home. Please follow-up with your doctor and/or orthopedics for further care. You can find knee stretches with knees over toes padmini on YouTube. I am prescribing a short course of narcotic pain medication for you. These are potentially dangerous and addictive medications that should be used carefully. These medications may constipate you. Take an chgy-gvk-bewffco stool softener (docusate) twice daily with plenty of water while taking these medications. If you go 24 hours without a bowel movement, take [id number] miralax, per package instructions. Do not drink or drive while taking these medications. If you received narcotic or sedating medications while in the emergency department, do not drive for 24 hours. Store this medication in a safe, secure place and out of reach of children. It is a violation of federal law to give or sell this medication to another person or to use in a manner other than prescribed. The ED will not refill narcotic prescriptions, including prescriptions lost or stolen. To dispose of unwanted medications: 1. [facility] at [address] in [place] has a medication drop box. They accept prescription medications (in pill form) Thursday through Thursday 9:00 a.m. to 5:00 p.m. 2. The [facility] [employer] accepts prescription medications (in pill form only) for disposal year round. Call for more info rmation. 3. Contact the [facility] for the next [facility] sponsored prescription drug collection event. , [phone], or [phone]; Forms: PCP List
--- NOTE | 2023-09-11 16:51 | XRAY Report ---
PROCEDURE: Knee 4+V RT INDICATIONS: R knee pain, swelling TECHNIQUE: 4 views of the knee(s) were acquired. COMPARISON: 11/04/2021. FINDINGS: Bones: No fractures or dislocations. No suspicious bony lesions. Tricompartmental degenerative ch anges as before. Soft tissues: Moderate-sized knee joint effusion. No suspicious soft tissue calcifications or masses . IMPRESSION: No acute bony abnormality. 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 Reviewed by: Miguel Quintero MD on 09/11/2023 4:50 PM PDT Approved by: Miguel Quintero MD on 09/11/2023 4:50 PM PDT Station ID: [id number]
[2023-09-11 17:55] VITALS: BP 166/89; O2SAT 97
== END 2023-09-11 17:55 | disposition home or self-care (01) ==
LOC: ED 15:41
DX: M25.461 Effusion, right knee (principal); M17.11 Unilateral primary osteoarthritis, right knee
CPT/HCPCS: 96372; 99283; 99284

== ENCOUNTER 2023-11-09 08:08 | Outpatient (CLI) | payer MEDICARE ==
[2023-11-09 08:23] LABS: BASOPHILS % (AUTO) 0.5 %; EOSINOPHILS # (AUTO) 0.4 10^3/uL (0.0-0.7); EOSINOPHILS % (AUTO) 5.4 %; HCT - HEMATOCRIT 41.7 % (37.0-47.0); HGB - HEMOGLOBIN 13.9 g/dL (12.0-16.0); LYMPHOCYTES # (AUTO) 2.3 10^3/uL (1.5-3.5); LYMPHOCYTES % (AUTO) 27.8 %; MEAN CORPUSCULAR HEMOGLOBIN 29.6 pg (27.0-31.0); MEAN CORPUSCULAR HGB CONC 33.3 g/dL (32.0-36.0); MEAN CORPUSCULAR VOLUME 88.7 fL (81.0-99.0); MEAN PLATELET VOLUME 8.3 fL (7.9-10.8); MONOCYTES # (AUTO) 0.5 10^3/uL (0.0-1.0); MONOCYTES % (AUTO) 5.6 %; NEUTROPHILS % (AUTO) 60.5 %; PLT - PLATELET COUNT 354 10^3/uL (130-450); WHITE BLOOD COUNT 8.2 x10^3/uL (4.8-10.8)
[2023-11-09 08:43] LABS: ALBUMIN 4.4 g/dL (3.2-5.5); ALBUMIN/GLOBULIN RATIO 1.9 (1.0-2.2); ALKALINE PHOSPHATASE 57 IU/L (42-121); ALT ALANINE AMINOTRANSFERASE 19 IU/L (10-60); AST ASPARTATE AMINOTRANSFERASE 14 IU/L (10-42); BILIRUBIN,TOTAL 0.4 mg/dL (0.2-1.0); BUN - BLOOD UREA NITROGEN 10 mg/dL (6-20); CALCIUM 9.6 mg/dL (8.5-10.3); CARBON DIOXIDE - CO2 29 mmol/L (21-32); CHLORIDE 101 mmol/L (101-111); CHOL/HDL RATIO 4.5 (<4.4); CHOLESTEROL 252 mg/dL; CREATININE 0.6 mg/dL (0.6-1.3); GFR - MDRD 100 (>89); GLUCOSE 109 mg/dL (74-104); HDL CHOLESTEROL 56 mg/dL; LDL CHOLESTEROL,CALCULATED 165 mg/dL; LDL/HDL RATIO 2.9 (<4.4); POTASSIUM 4.1 mmol/L (3.5-4.5); SODIUM 134 mmol/L (135-145); TOTAL PROTEIN 6.7 g/dL (6.4-8.9); TRIGLYCERIDES 156 mg/dL; VLDL CHOLESTEROL 31 mg/dL
[2023-11-09 08:59] LABS: THYROID STIMULATING HORMONE 1.09 uIU/mL (0.34-5.60)
== END 2023-11-09 08:09 | disposition home or self-care (01) ==
LOC: LAB 08:08
PROVIDERS: ATTEND Family Medicine
DX: M54.2 Cervicalgia (principal); R03.0 Elevated blood-pressure reading, without diagnosis of hypertension; F41.9 Anxiety disorder, unspecified; G47.00 Insomnia, unspecified; F32.A Depression, unspecified
CPT/HCPCS: 36415; 80053; 80061; 83721; 84439; 84443; 84481; 85025